=== PATIENT | female | born 1985 | race Caucasian/White ===

== ENCOUNTER 2017-06-04 10:59 | Emergency (ER) | payer OTHER, SELFPAY ==
[2017-06-04 12:43] VITALS: BP 136/74; PULSE 89; RESP 20; TEMP 37.2; O2SAT 96; BMI 35.6
[2017-06-04 12:59] LABS: UTC Influenza A Antigen Negative (Negative); UTC Influenza B Antigen Negative (Negative)
--- NOTE | 2017-06-04 13:24 | HMH.EDUTC ---
[facility] [place] Disposition Clinical Impression: Viral illness Disposition: Home, Self-Care Condition on Discharge: Good Instructions: DI for Viral Syndrome Additional Instructions: * No sign of bacterial infection. Likely viral. Virus can take 7-14 days to run their course * Monitor Temp. Tylenol every 4 hours as needed no more then 5 times a day or 4000mg in 24 hours and/or ibuprofen every 6 hours as needed no more then 3200mg in 24 hours (as long as your primary care doctor has told you that it is ok to take both) for fever/aches/pain. ER if fever no less than 101 despite tylenol and ibuprofen * Encourage fluids, water, gatorade, powerade, pedialyte if infant/toddler/child * warm salt water gargles * warm fluids * sore throat lozenges * sleep elevated * humidifier/vaporizer Referrals: Mayra Palma [Primary Care Provider] - (IMMEDIATELY for new or worsening symptoms OR no noticeable improvement over the next 48-72 hours. FU in 48 hours for strep culture results. 911 for difficulty breathing or swallowing.) Time of Disposition: 13:55 Medical Decision Making Vital Signs: 06/04/17 12:43 Temperature 98.9 F Temperature Source Temporal Artery Scan Pulse Rate [Right Brachial] 89 Respiratory Rate 20 Blood Pressure [Right Arm] 136/74 Blood Pressure Mean [Right Arm] 94 Blood Pressure Source [Right Arm] Automatic Cuff Blood Pressure Position [Right Arm] Sitting 02 Sat by Pulse Oximetry 96 Oxygen Delivery Method Room Air - Lab Data Lab results reviewed: Yes: I reviewed the patient's lab results. Lab Results 06/04/17 12:58: Influenza Type A Ag Negative, Influenza Type B Ag Negative - [place] Inquiry Pt receiving controlled substance: No [facility] [place] HPI - General Stated complaint: congestion Time Seen by Provider: 06/04/17 13:25 Mode of Arrival: Family Vehicle Source of Information: Patient Limitations: No Limitations Description of Symptoms (Recalled from Triage Doc. by RN): FLU LIKE SYMTOMS. HEENT Symptoms (Recalled from RN notes): Yes (FLU LIKE SYMPTOMS) Resp Symptoms (Recalled from RN notes): Yes (FLU LIKE SYMPTOMS) Skin Symptoms (Recalled from RN notes): No MS Symptoms (Recalled from RN notes): No Functional Status (Recalled from RN notes): NA - History of Present Illness Provider Complaint: c/o bodyaches. Started day before yesterday. Spouse recently had strep. Pt does have sore throat but worried she has the flu, not strep. No cough. Nyquil and ibuprofen has helped. Hasn't taken anything today but reports bodyaches are miserable. - Related Data Home Medications Medication Instructions Recorded Confirmed Omeprazole [Omeprazole 20mg 20 mg PO DAILY 06/04/17 06/04/17 Capsule] Venlafaxine HCl [Venlafaxine HCl 150 mg PO DAILY 06/04/17 06/04/17 ER] Allergies Allergy/AdvReac Type Severity Reaction Status Date / Time No Known Allergies Allergy Verified 06/04/17 11:39 - Worker's Comp Is this a Worker's Comp case?: No Is this an [place] Worker's Comp?: No Is this a [place] Worker's Comp?: No [place] History I have reviewed the patient's past medical history: Yes Medical History: Denies:: Diabetes Mellitus Type 2, Hypertension Laterality Cases: Bilateral: Tonsillectomy Other Surgeries: Yes: , Other (anna, hysterectomy) - *Social History Smoking Status: Never smoker Alcohol Intake: never - Psychiatric History Expresses thoughts of harming self/others: None Suicide Plan Description: No Plan ROS Obtained: Yes Systems reviewed as appropriate & no additional complaints - Constitutional Constitutional: Reports as per HPI, Reports body ache, Reports chills, Reports fatigue, Reports fever(s) (101), Reports poor appetite - Eyes Eyes: Denies eye discharge, Denies eye pain - ENT Ears, Nose, Mouth, and Throat: Denies difficulty swallowing, Reports otalgia, Reports nasal congestion, Denies nasal discharge, Reports pain with swallowing, Reports sore throat, Denies throat swelling
--- NOTE | 2017-06-04 13:29 | ED_ITS ---
[facility] [place] Clinical Impression: Viral illness Disposition: Home, Self-Care Condition on Discharge: Good Instructions: DI for Viral Syndrome Additional Instructions: * No sign of bacterial infection. Likely viral. Virus can take 7-14 days to run their course * Monitor Temp. Tylenol every 4 hours as needed no more then 5 times a day or 4000mg in 24 hours and/or ibuprofen every 6 hours as needed no more then 3200mg in 24 hours (as long as your primary care doctor has told you that it is ok to take both) for fever/aches/pain. ER if fever no less than 101 despite tylenol and ibuprofen * Encourage fluids, water, gatorade, powerade, pedialyte if infant/toddler/ child * warm salt water gargles * warm fluids * sore throat lozenges * sleep elevated * humidifier/vaporizer Referrals: Mayra Palma [Primary Care Provider] - (IMMEDIATELY for new or worsening symptoms OR no noticeable improvement over the next 48-72 hours. FU in 48 hours for strep culture results. 911 for difficulty breathing or swallowing.) Time of Disposition: 13:55 Medical Decision Making Vital Signs: 06/04/17 12:43 Temperature 98.9 F Temperature Source Temporal Artery Scan Pulse Rate [Right Brachial] 89 Respiratory Rate 20 Blood Pressure [Right Arm] 136/74 Blood Pressure Mean [Right Arm] 94 Blood Pressure Source [Right Arm] Automatic Cuff Blood Pressure Position [Right Arm] Sitting 02 Sat by Pulse Oximetry 96 Oxygen Delivery Method Room Air - Lab Data Lab results reviewed: Yes: I reviewed the patient's lab results. Lab Results 06/04/17 12:58: Influenza Type A Ag Negative, Influenza Type B Ag Negative - [place] Inquiry Pt receiving controlled substance: No [facility] [place] - General Stated complaint: congestion Time Seen by Provider: 06/04/17 13:25 Mode of Arrival: Family Vehicle Source of Information: Patient Limitations: No Limitations Description of Symptoms (Recalled from Triage Doc. by RN): FLU LIKE SYMTOMS. HEENT Symptoms (Recalled from RN notes): Yes (FLU LIKE SYMPTOMS) Resp Symptoms (Recalled from RN notes): Yes (FLU LIKE SYMPTOMS) Skin Symptoms (Recalled from RN notes): No MS Symptoms (Recalled from RN notes): No Functional Status (Recalled from RN notes): NA - History of Present Illness Provider Complaint: c/o bodyaches. Started day before yesterday. Spouse recently had strep. Pt does have sore throat but worried she has the flu, not strep. No cough. Nyquil and ibuprofen has helped. Hasn't taken anything today but reports bodyaches are miserable. - Related Data Home Medications Medication Instructions Recorded Confirmed Omeprazole [Omeprazole 20mg 20 mg PO DAILY 06/04/17 06/04/17 Capsule] Venlafaxine HCl [Venlafaxine HCl 150 mg PO DAILY 06/04/17 06/04/17 ER] Allergies Allergy/AdvReac Type Severity Reaction Status Date / Time No Known Allergies Allergy Verified 06/04/17 11:39 - Worker's Comp Is this a Worker's Comp case?: No Is this an H Worker's Comp?: No Is this a [place] Worker's Comp?: No [facility] History I have reviewed the patient's past medical history: Yes Medical History: Denies:: Diabetes Mellitus Type 2, Hypertension Laterality Cases: Bilateral: Tonsillectomy Other Surgeries: Yes: , Other (anna, hysterectomy) - *Social History Smoking Status: Never smoker Alcohol Intake:
[2017-06-05 14:31] LABS: UTC Strep Screen (Rapid) Negative (Negative)
== END 2017-06-04 14:07 | disposition home or self-care (01) ==
PROVIDERS: Emergency Provider Nurse Practitioner Family; Family Provider Family Medicine; PCP Family Medicine
DX: B34.9 Viral infection, unspecified (principal); Z79.899 Other long term (current) drug therapy
CPT/HCPCS: 87804; 87880; 99201

== ENCOUNTER → 2017-07-28 13:18 | Outpatient (CLI) | payer OTHER, SELFPAY ==
[2017-07-28 13:20] LABS: Adenovirus F 40/41, stool Not Detected (NotDetected); Astrovirus Not Detected (NotDetected); Campylobacter Not Detected (NotDetected); Clostridium Difficile A/B, PCR Not Detected (NotDetected); Cryptosporidium Not Detected (NotDetected); Cyclospora Cayetanesis Not Detected (NotDetected); Entamoeba histolytica Not Detected (NotDetected); Enteroaggregative E coli Not Detected (NotDetected); Enteropathogenic E coli Not Detected (NotDetected); Enterotoxigenic E coli Not Detected (NotDetected); Giardia lamblia Not Detected (NotDetected); Norovirus Not Detected (NotDetected); Plesimonas Shigalloides, PCR Not Detected (NotDetected); Rotavirus A Not Detected (NotDetected); Salmonella, PCR Not Detected (NotDetected); Sapovirus Not Detected (NotDetected); Shiga-like toxin E coli Not Detected (NotDetected); Shigella Enterovasive E coli Not Detected (NotDetected); Vibrio Cholerae Not Detected (NotDetected); Vibrio, PCR Not Detected (NotDetected); Yersinia Entercolitica, PCR Not Detected (NotDetected)
[2017-07-28 14:01] LABS: Alanine Aminotransferase 26 U/L (12-78); Albumin Level 3.9 gm/dL (3.4-5.0); Albumin/Globulin Ratio 1.1 (1.1-1.8); Alkaline Phosphatase 55 U/L (46-116); Anion Gap 13.2 mEq/L (5-15); Aspartate Amino Transferase 15 U/L (15-37); Bilirubin,Total 0.6 mg/dL (0.2-1.0); Blood Urea Nitrogen 7 mg/dL (7-18); Calcium 8.8 mg/dL (8.5-10.1); Carbon Dioxide 26 mmol/L (21.0-32.0); Chloride 105 mmol/L (98-107); Chol/HDL Ratio 3.2 (1-3.5); Cholesterol 187 mg/dL (140-200); Creatinine,Serum 0.63 mg/dL (0.55-1.02); Estimated Glomerular Filt Rate 109 ml/min (>60); GFR (African American) 132 ML/MIN (>60); Globulin 3.6 gm/dl (1.3-3.2); Glucose 84 mg/dL (74-106); HDL Cholesterol 59 mg/dL (29-89); LDL Cholesterol 106 mg/dL (0-130); Potassium 4.2 mmoL/L (3.5-5.1); Sodium 140 mmol/L (136-145); Thyroid Stimulating Hormone 2.27 uIU/ml (0.358-3.740); Total Protein,Serum 7.5 gm/dL (6.4-8.2); Triglycerides 108 mg/dL (30-200); VLDL Cholesterol 22 mg/dL (0-40)
[2017-07-28 14:11] LABS: Basophils % 0.1 % (0.1-2.0); Eosinophils % 0.1 % (0.1-12.0); Hematocrit 40.1 % (37.0-47.0); Hemoglobin 13.4 g/dL (12.2-16.2); Lymphocytes # 2.1 K/mm3 (0.7-4.5); Lymphocytes % 31.9 K/mm3 (10-50); Mean Corpuscular HGB Conc 33.3 g/dL (31.8-35.4); Mean Corpuscular Hemoglobin 30.2 pg (27.0-31.2); Mean Corpuscular Volume 90.8 fl (81-99); Mean Platelet Volume 7.5 fl (7.4-10.4); Monocytes # 0.3 K/mm3 (0.1-1.0); Monocytes % 4.7 % (1.7-9.3); Neutrophils # 4.2 K/mm3 (1.8-7.8); Neutrophils % 63.2 % (37.0-80.0); Platelet Count 289 K/mm3 (142-424); Red Blood Count 4.42 M/mm3 (4.20-5.40); Red Cell Distribution Width 13.1 % (11.5-17.5); White Blood Count 6.7 K/mm3 (4.8-10.8)
[2017-07-30 09:29] LABS: Vitamin D 25 Hydroxy 22.2 ng/mL (30.0-100.0)
[2017-07-30 21:49] LABS: H. pylori Breath Test Negative (Negative)
== END ==
PROVIDERS: Visit Provider Physician Assistant
DX: K52.9 Noninfective gastroenteritis and colitis, unspecified (principal); R19.4 Change in bowel habit; R10.9 Unspecified abdominal pain
CPT/HCPCS: 74021; 80053; 80061; 82652; 83013; 84436; 84443; 85025; 87507

== ENCOUNTER 2017-08-05 18:57 | Emergency (ER) | payer OTHER, SELFPAY ==
[2017-08-05 19:16] VITALS: BP 129/72; PULSE 79; RESP 20; TEMP 36.9; O2SAT 99; BMI 38.4
--- NOTE | 2017-08-05 19:45 | XR_ITS ---
XR nasal bones min 3V CLINICAL INDICATION: Posttraumatic pain and swelling of the nasal bone ITS.REASON: Injury ORDERING PHYSICIAN: Jacquelyn Norton PATIENT AGE: 32 years COMPARISON: None FINDINGS: No fracture or dislocation. No sinus air-fluid level. IMPRESSION: Nasal bones
--- NOTE | 2017-08-05 19:59 | HMH.EDUTC ---
[facility] [place] Clinical Impression: Nose injury Qualifiers: Encounter type: initial encounter Qualified Code(s): S09.92XA - Unspecified injury of nose, initial encounter Disposition: Home, Self-Care Condition on Discharge: Good Instructions: Contusion, DI for Contusion Additional Instructions: Ice 20 minutes every two hours will help with swelling and pain Follow up with family doctor if pain and swelling persists Return if needed Over the counter Motrin or Tylenol as needed for pain Follow up with family doctor 24-48 hours or straight to ER if any lifethreatening symptoms Referrals: Haylee Curiel PA [Primary Care Provider] - Time of Disposition: 20:35 Medical Decision Making - Medical Records Medical records reviewed: Yes: I reviewed the patient's medical records. - Tejas Inquiry Pt receiving controlled substance: No [place] was queried for this patient: No Vital Signs: 08/05/17 19:16 08/05/17 20:23 Temperature 98.4 F 98.4 F Temperature Source Temporal Artery Scan Pulse Rate 79 Pulse Rate [Right] 79 Respiratory Rate 20 20 Blood Pressure 129/72 Blood Pressure [Right Arm] 129/72 Blood Pressure Mean [Right Arm] 91 Blood Pressure Source [Right Arm] Automatic Cuff Blood Pressure Position [Right Arm] Sitting 02 Sat by Pulse Oximetry 99 Oxygen Delivery Method Room Air Orders (Tests/Meds): ORDERS Category Date Time Status Nasal bones XR minimum 3 views [XR nasal bones min 3V] Exams 08/05/17 19:45 Taken Stat - Radiology Data #1 Image(s): Other (nasal bone) Image Reviewed: Yes I reviewed the patient's radiology image w/the ED provider Preliminary Findings: No Fracture Seen [facility] [place]PI - General Stated complaint: AO [id number] injured nose Time Seen by Provider: 08/05/17 19:40 Mode of Arrival: Ambulatory Source of Information: Patient Limitations: No Limitations Description of Symptoms (Recalled from Triage Doc. by RN): INJURY TO NOSE HEENT Symptoms (Recalled from RN notes): No Resp Symptoms (Recalled from RN notes): No Skin Symptoms (Recalled from RN notes): No MS Symptoms (Recalled from RN notes): Yes Functional Status (Recalled from RN notes): N - History of Present Illness Provider Complaint: Patient state that she was at home when her large dog (great Eddie) turned his head and accidently hit her in the nose States that she immediately began to have watery eyes and her nose began to throb in pain State that ever since it has been swollen and tender so she came in to get checked - Related Data Home Medications Medication Instructions Recorded Confirmed Venlafaxine HCl [Venlafaxine HCl 150 mg PO DAILY 06/04/17 06/04/17 ER] ranitidine 150 mg tablet 150 mg PO QHS 07/28/17 Previous Rx's Medication Instructions Recorded cholecalciferol (vitamin D3) 1,000 1,000 unit PO ONCE 90 Days #90 cap 07/30/17 unit capsule ergocalciferol (vitamin D2) 50,000 50,000 unit PO QWEEK 90 Days #14 07/30/17 unit capsule cap Allergies Allergy/AdvReac Type Severity Reaction Status Date / Time No Known Allergies Allergy Verified 07/28/17 10:30 - Worker's Comp Is this a Worker's Comp case?: No [facility] History I have reviewed the patient's past medical history: Yes Medical History: Reports:: Depression, Gastroesophageal Reflux Disease(GERD) Laterality Cases: Bilateral: Tonsillectomy Other Surgeries: Yes: , Hysterectomy-Partial Amputation: No Fractures: No Comment: Gallbladder - Social History Smoking Status: Never smoker Alcohol Intake: never Substance Use Type: denies use - Psychiatric History Expresses thoughts of harming self/others: None Suicide Plan Description: No Plan Pschychiatric History:: Reports:: Depression Family Hx:: Coronary Artery Disease, Diabetes ROS Obtained: Yes All systems reviewed & no additional complaints - ENT Ears, Nose, Mouth, and Throat: Reports nose pain, Reports other (injury to nose ) Physical Exam
--- NOTE | 2017-08-05 20:02 | ED_ITS ---
[facility] [place] Clinical Impression: Nose injury Qualifiers: Encounter type: initial encounter Qualified Code(s): S09.92XA - Unspecified injury of nose, initial encounter Disposition: Home, Self-Care Condition on Discharge: Good Instructions: Contusion, DI for Contusion Additional Instructions: Ice 20 minutes every two hours will help with swelling and pain Follow up with family doctor if pain and swelling persists Return if needed Over the counter Motrin or Tylenol as needed for pain Follow up with family doctor 24-48 hours or straight to ER if any lifethreatening symptoms Referrals: Haylee Curiel PA [Primary Care Provider] - Time of Disposition: 20:35 Medical Decision Making - Medical Records Medical records reviewed: Yes: I reviewed the patient's medical records. - Tejas Inquiry Pt receiving controlled substance: No [place] was queried for this patient: No Vital Signs: 08/05/17 19:16 08/05/17 20:23 Temperature 98.4 F 98.4 F Temperature Source Temporal Artery Scan Pulse Rate 79 Pulse Rate [Right] 79 Respiratory Rate 20 20 Blood Pressure 129/72 Blood Pressure [Right Arm] 129/72 Blood Pressure Mean [Right Arm] 91 Blood Pressure Source [Right Arm] Automatic Cuff Blood Pressure Position [Right Arm] Sitting 02 Sat by Pulse Oximetry 99 Oxygen Delivery Method Room Air Orders (Tests/Meds): ORDERS Category Date Time Status Nasal bones XR minimum 3 views [XR nasal bones min 3V] Exams 08/05/17 19:45 Taken Stat - Radiology Data #1 Image(s): Other (nasal bone) Image Reviewed: Yes I reviewed the patient's radiology image w/the ED provider Preliminary Findings: No Fracture Seen [facility] [place] - General Stated complaint: AO [id number] injured nose Time Seen by Provider: 08/05/17 19:40 Mode of Arrival: Ambulatory Source of Information: Patient Limitations: No Limitations Description of Symptoms (Recalled from Triage Doc. by RN): INJURY TO NOSE HEENT Symptoms (Recalled from RN notes): No Resp Symptoms (Recalled from RN notes): No Skin Symptoms (Recalled from RN notes): No MS Symptoms (Recalled from RN notes): Yes Functional Status (Recalled from RN notes): N - History of Present Illness Provider Complaint: Patient state that she was at home when her large dog ( great Eddie) turned his head and accidently hit her in the nose States that she immediately began to have watery eyes and her nose began to throb in pain State that ever since it has been swollen and tender so she came in to get checked - Related Data Home Medications Medication Instructions Recorded Confirmed Venlafaxine HCl [Venlafaxine HCl 150 mg PO DAILY 06/04/17 06/04/17 ER] ranitidine 150 mg tablet 150 mg PO QHS 07/28/17 Previous Rx's Medication Instructions Recorded cholecalciferol (vitamin D3) 1,000 1,000 unit PO ONCE 90 Days #90 cap 07/30/17 unit capsule ergocalciferol (vitamin D2) 50,000 50,000 unit PO QWEEK 90 Days #14 07/30/17 unit capsule cap Allergies Allergy/AdvReac Type Severity Reaction Status Date / Time No Known Allergies Allergy Verified 07/28/17 10:30 - Worker's Comp Is this a Worker's Comp case?: No [facility] History I have reviewed the patient's past medical history: Yes Me
[2017-08-05 20:23] VITALS: BP 129/72; PULSE 79; RESP 20; TEMP 36.9
== END 2017-08-05 20:38 | disposition home or self-care (01) ==
PROVIDERS: Emergency Provider Nurse Practitioner; Family Provider Family Medicine; PCP Physician Assistant
DX: S09.92XA Unspecified injury of nose, initial encounter (principal); K21.9 Gastro-esophageal reflux disease without esophagitis; F32.9 Major depressive disorder, single episode, unspecified; W54.1XXA Struck by dog, initial encounter; Y92.019 Unspecified place in single-family (private) house as the place of occurrence of the external cause
CPT/HCPCS: 70160; 99201

== ENCOUNTER → 2017-08-20 08:47 | Outpatient (CLI) | payer OTHER, SELFPAY ==
--- NOTE | 2017-08-20 08:49 | FL_ITS ---
FL upper GI small bowel HISTORY: ITS.REASON: Abdominal pain,nausea ORDERING PHYSICIAN: Memo Cameron MD PATIENT AGE: 32 years COMPARISON: FINDINGS: The esophagus, stomach, and duodenum have an unremarkable appearance. There is no evidence of hiatal hernia. No ulcer or mass evident. No mucosal abnormalities apparent. There is normal peristalsis. The duodenal C-loop is nondisplaced. The small bowel has an unremarkable appearance. No obstruction, mass, or mucosal abnormalities are evident. The terminal ileum has an unremarkable appearance. The appendix didn't fill FLUOROSCOPY TIME : Fluoroscopy time. IMPRESSION: Negative upper GI with small bowel follow-through
== END ==
PROVIDERS: Family Provider Family Medicine; PCP Physician Assistant; Visit Provider Surgery
DX: R10.30 Lower abdominal pain, unspecified (principal); K52.9 Noninfective gastroenteritis and colitis, unspecified; R11.0 Nausea
CPT/HCPCS: 74245

== ENCOUNTER → 2017-09-02 08:38 | Outpatient (CLI) | payer OTHER, SELFPAY ==
--- NOTE | 2017-09-02 08:40 | CT_ITS ---
CT abdomen pelvis w con CLINICAL INDICATION: ITS.REASON: lower abdominal pain,nausea ORDERING PHYSICIAN: Memo Cameron MD PATIENT AGE: 32 years COMPARISON: 03/24/2017 TECHNIQUE: Axial images obtained with sagittal and coronal reformats. All CT scans at the facility use one or more dose reduction, viz: automated exposure control; ma/kV adjustment per patient size (including targeted exams where dose is matched to indication; i.e. head); or iterative reconstruction technique. PROCEDURE: Oral Contrast: 75 mL's of Isovue-370 IV Contrast: Redicat. FINDINGS: Lung bases are clear. No focal liver lesion. There has been a prior cholecystectomy. There is borderline splenomegaly at 13 cm. The pancreas, adrenal glands, and kidneys have an unremarkable appearance. Small nodes are present in the periaortic region Unremarkable appendix. No evidence of diverticulitis, intestinal obstruction, or free air. There is been prior hysterectomy. There is a 2.5 cm cyst involving the right ovary. There is minimal amount of fluid in the cul-de-sac. There is mild diastases of the anterior abdominal wall centrally at the level the umbilicus similar to the previous exam with a tiny umbilical hernia containing fat. No acute bony anomalies. IMPRESSION: 1. 2.5 cm right ovarian cyst with minimal amount of fluid in the cul-de-sac. 2. Borderline splenomegaly. 3. Other nonacute findings as described above.
== END ==
PROVIDERS: Family Provider Family Medicine; PCP Physician Assistant; Visit Provider Surgery
DX: R11.0 Nausea (principal); K52.9 Noninfective gastroenteritis and colitis, unspecified; R10.30 Lower abdominal pain, unspecified
CPT/HCPCS: 74177; Q9967

== ENCOUNTER → 2019-05-20 13:55 | Outpatient (CLI) | payer MEDICAID, SELFPAY ==
--- NOTE | 2019-05-20 14:01 | XR_ITS ---
PROCEDURE: XR KNEE RT 4V CLINICAL INDICATION: Right knee pain Right knee pain COMPARISON: [id number] KNEE-3 VIEWS-RT from 01/25/2017 FINDINGS: No fracture or dislocation. No lytic or blastic change. There is normal mineralization. The joint spaces are well-preserved. No significant degenerative/arthritic changes. No erosive changes evident. Other findings:None. IMPRESSION: No acute findings. Dictated by: Nic Newberry MD 05/20/2019 14:35 Electronically signed by Nic Newberry MD in [place] 05/20/2019 14:35
--- NOTE | 2019-05-20 14:01 | XR_ITS ---
PROCEDURE: XR ELBOW LT MIN 3V CLINICAL INDICATION: Left elbow pain [facility] 10[facility] FINDINGS: No fracture or dislocation. No lytic or blastic change. There is normal mineralization. The joint spaces are well-preserved. No significant degenerative/arthritic changes. No erosive changes evident. Other findings:No displaced fat pad IMPRESSION: Negative left elbow Dictated by: Nic Newberry MD 05/20/2019 14:39 Electronically signed by Nic Newberry MD in [place] 05/20/2019 14:39
== END ==
PROVIDERS: PCP Physician Assistant; Referring Provider Orthopaedic Surgery; Visit Provider Physician Assistant
DX: M25.522 Pain in left elbow (principal); M25.561 Pain in right knee
CPT/HCPCS: 73080; 73564

== ENCOUNTER 2019-05-27 13:49 | Outpatient (RCR) | payer MEDICAID, SELFPAY ==
--- NOTE | 2019-05-27 14:35 | HMH.PTOPEV ---
PT Outpatient Evaluation Rehab PT Outpatient Evaluation Start: 05/27/19 14:15 Freq: Status: Active Protocol: Document 05/27/19 14:15 SELAM (Rec: 05/27/19 14:35 SELAM [id number]) Electronically Signed By Nathaniel Velazquez, PT 05/27/19 14:15 Outpatient Therapy Subjective History Subjective History Pt reports h/o chronic R knee pain since 1999, however, reports exacerbation over the last ~12 months. Pt reports mostly anterio-lateral R knee pain in origin, and intermittent 'popping, clicking, and some buckling'. Pt reports recent Xrays of R knee have revealed 'issues behind the right knee cap'. Chief Complaint Pain,Stiff,Clicks,Catches/ Locks,Gives out/Unstable, Weakness Symptom Type Ache,Sharp,Dull Symptoms Relieved By Rest/Positioning,Heat,Ice Symptoms Aggravated By Standing,Physical Activity, Walking Prior Functional Limitations Housework,Standing,Walking, Stairs Current Functional Limitations Housework,Standing,Squatting, Walking,Stairs Symptom Description Constant but Variable Level of pain today (0-10) 4 Pain scale - at its best (0-10) 3 Pain scale - at its worst (0-10) 6 Hip/Knee Eval Gait Observation General Gait Pattern Observation Antalgic Gait Assistive Device Assistive Devices None / NA Palpation Tenderness right Knee Palpation Finding Tenderness Knee Palpation Overall Comment 3/4-lateral plica MMT Hip Flexion Strength Grade 4- Good- Hip Abduction Strength Grade 4- Good- Hip Adduction Strength Grade 4- Good- Hip Extension Strength Grade 4- Good- Hip External Rotation Strength Grade 4 Good Hip Internal Rotation Strength Grade 4- Good- Knee Extension Strength Grade 5 Normal Knee Flexion Strength Grade 5 Normal ROM Knee Flexion Active Range of Motion ( 2-0-135 degrees) Effusion joint effusion knee exam standard right Mid - Patellar Circumerential Measure ( 43 cm) Special Tests Patella Apprehension Test Negative Right Patellar Grind Test Negative Right Patellar Compression Test Negative Right Outpatient Therapy Assessment Impairments Problems/Impairmments Palpation Tenderness,Impaired Range of Motion,Impaired Strength,Impaired Gait Pattern
== END 2019-05-27 13:55 | disposition home or self-care (01) ==
LOC: PT 13:49
PROVIDERS: PCP Physician Assistant; Visit Provider Orthopaedic Surgery
DX: M22.41 Chondromalacia patellae, right knee (principal)
CPT/HCPCS: 97163

== ENCOUNTER 2019-12-15 22:52 | Emergency (ER) | payer MEDICAID, SELFPAY ==
[2019-12-15 22:54] VITALS: BMI 34.7
[2019-12-15 22:56] VITALS: BP 124/68; PULSE 67; RESP 16; TEMP 36.9; O2SAT 99
--- NOTE | 2019-12-15 23:11 | XR_ITS ---
PROCEDURE: XR KNEE RT 3V CLINICAL INDICATION: fell from ladder Pain following injury COMPARISON: CR KNEE3R KNEE-3 VIEWS-RT from 01/25/2017 CR XR KNEE RT 4V from 05/20/2019 FINDINGS: No fracture or dislocation. No lytic or blastic change. There is normal mineralization. The joint spaces are well-preserved. No significant degenerative/arthritic changes. No erosive changes evident. Other findings:None. IMPRESSION: No acute findings. Dictated b Nic Newberry MD 12/16/2019 05:46 Nic Newberry MD in [place] 12/16/2019 05:46
--- NOTE | 2019-12-15 23:11 | XR_ITS ---
PROCEDURE: XR ANKLE RT MIN 3V CLINICAL INDICATION: fell from ladder Pain COMPARISON: No exams were available for comparison FINDINGS: No fracture or dislocation. No lytic or blastic change. There is normal mineralization. The joint spaces are well-preserved. No significant degenerative/arthritic changes. No erosive changes evident. Other findings:None. IMPRESSION: No acute findings. Dictated b Nic Newberry MD 12/16/2019 05:45 Nic Newberry MD in [place] 12/16/2019 05:45
--- NOTE | 2019-12-15 23:11 | XR_ITS ---
PROCEDURE: XR FOOT RT MIN 3V CLINICAL INDICATION: fell from ladder Pain COMPARISON: No exams were available for comparison FINDINGS: No fracture or dislocation. No lytic or blastic change. There is normal mineralization. The joint spaces are well-preserved. No significant degenerative/arthritic changes. No erosive changes evident. Other findings:None. IMPRESSION: No acute findings. Dictated b Nic Newberry MD 12/16/2019 05:44 Nic Newberry MD in [place] 12/16/2019 05:44
--- NOTE | 2019-12-15 23:11 | XR_ITS ---
PROCEDURE: XR TIBIA FIBULA RT 2V CLINICAL INDICATION: fell from ladder Pain following injury COMPARISON: CR XR FOOT RT MIN 3V from 12/15/2019 FINDINGS: No fracture or dislocation. No lytic or blastic change. There is normal mineralization. The joint spaces are well-preserved. No significant degenerative/arthritic changes. No erosive changes evident. Other findings:None. IMPRESSION: No acute findings. Dictated b Nic Newberry MD 12/16/2019 05:46 Nic Newberry MD in [place] 12/16/2019 05:46
--- NOTE | 2019-12-15 23:32 | XR_ITS ---
PROCEDURE: XR PELVIS 1-2V CLINICAL INDICATION: fell from ladder Blunt trauma with injury and pain, contusion/abrasion or hematoma following injury COMPARISON: No exams were available for comparison TECHNIQUE: XR Pelvis AP View FINDINGS: No fracture or dislocation is evident. No significant degenerative change. No lytic or blastic change. IMPRESSION: No acute findings. Dictated b Nic Newberry MD 12/16/2019 05:44 Nic Newberry MD in [place] 12/16/2019 05:44
--- NOTE | 2019-12-15 23:32 | XR_ITS ---
PROCEDURE: XR CHEST AP CLINICAL HISTORY: fell from ladder Posttraumatic pain, Blunt trauma with injury and pain, contusion/abrasion or hematoma following injury COMPARISON: CR CXR CHEST(2 VIEWS-NOT PORTABLE) from 09/18/2014 FINDINGS: The cardiomediastinal silhouette and pulmonary vascularity are within normal limits. The lungs are clear without infiltrates, suspicious nodules, or pleural effusions. No acute bony abnormalities. IMPRESSION: No acute findings. Dictated b Nic Newberry MD 12/16/2019 05:43 Nic Newberry MD in [place] 12/16/2019 05:43
[2019-12-15 23:45] VITALS: BP 110/58; PULSE 61; RESP 18; O2SAT 99
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
[2019-12-16 00:26] VITALS: BP 115/62; PULSE 68; RESP 16; TEMP 37; O2SAT 97
== END 2019-12-16 00:28 | disposition home or self-care (01) ==
PROVIDERS: Emergency Provider Family Medicine; PCP Physician Assistant
DX: S93.401A Sprain of unspecified ligament of right ankle, initial encounter (principal); W11.XXXA Fall on and from ladder, initial encounter; Y92.019 Unspecified place in single-family (private) house as the place of occurrence of the external cause; F41.8 Other specified anxiety disorders; K21.9 Gastro-esophageal reflux disease without esophagitis; Z90.49 Acquired absence of other specified parts of digestive tract; Z90.79 Acquired absence of other genital organ(s)
CPT/HCPCS: 71045; 72170; 73562; 73590; 73610; 73630; 99281

== ENCOUNTER 2020-02-04 13:21 | Emergency (ER) | payer MEDICAID, SELFPAY ==
[2020-02-04 13:51] VITALS: BP 126/87; PULSE 72; RESP 14; TEMP 37.1; O2SAT 100; BMI 35.6
--- NOTE | 2020-02-04 13:51 | HMH.EDUTC ---
[facility] Disposition Clinical Impression: Viral syndrome, Bronchitis Disposition: Home, Self-Care Condition on Discharge: Good Instructions: Preventing the Spread of Coronavirus Discharge Instructions, DI for Viral Syndrome Additional Instructions: Drink plenty of fluids. Take tylenol or ibuprofen for pain or fever. Take the medications as directed. Follow up with your regular doctor. GO TO THE ER FOR ANY WORSENING SYMPTOMS FOLLOW THE DIRECTIONS ON THE COVID-19 HAND OUT THAT WE GAVE YOU REGARDING SELF-ISOLATION UNTIL YOU KNOW YOUR COVID-19 RESULTS Prescriptions: Brompheniramine/Pseudoephed/Dm [Bromfed Dm Cough Syrup] 5 ml PO Q6HP PRN #240 syrup PRN Reason: Cough Transmission Status: Pending to [facility] # Ondansetron [Zofran 4mg ODT] 4 mg PO Q8HP PRN #20 tab.rapdis PRN Reason: Nausea Transmission Status: Pending to [facility] # Azithromycin [Z-Asaf 250mg Tab*] 250 mg PO UD DOSE PK #6 tab Transmission Status: Pending to [facility] # Referrals: Haylee Curiel PA [Primary Care Provider] - Forms: Work/School Release Time of Disposition: 13:55 Medical Decision Making - Medical Records Medical records reviewed: No: I reviewed the patient's medical records. - [place] Inquiry Pt receiving controlled substance: No - Lab Data Lab results reviewed: Yes: I reviewed the patient's lab results. Orders (Tests/Meds): ORDERS Category Date Time Status Covid-19 Nasal PCR Sendout [facility] Stat Lab 02/04/20 13:24 Ordered [facility] HPI - General Stated complaint: oumou alexanders Time Seen by Provider: 02/04/20 13:51 - History of Present Illness Provider Complaint: She c/o 3 days of chilling, body aches, dry cough and mild shortness of breath at times. She has also been running a fever but she has not checked it with a thermometer. - Related Data Previous Rx's Medication Instructions Recorded Azithromycin [Z-Asaf 250mg Tab*] 250 mg PO UD DOSE PK #6 tab 02/04/20 Brompheniramine/Pseudoephed/Dm 5 ml PO Q6HP PRN #240 syrup 02/04/20 [Bromfed Dm Cough Syrup] Ondansetron [Zofran 4mg ODT] 4 mg PO Q8HP PRN #20 tab.germandis 02/04/20 Allergies Allergy/AdvReac Type Severity Reaction Status Date / Time No Known Allergies Allergy Verified 11/10/19 10:13 [facility] History - Hepatitis A Screen Attestation statement:: This patient has been screened for Hepatitis A risk factors. I have reviewed the patient's past medical history: Yes Medical History: Reports:: Anxiety, Depression, Gastroesophageal Reflux Disease(GERD) Denies:: Cancer, Diabetes Mellitus Type 1, Diabetes Mellitus Type 2, Hypertension, MRSA Laterality Cases: Bilateral: Tonsillectomy Other Surgeries: Yes: Cholecystectomy, , Hysterectomy-Total, Hysterectomy-Partial, Other Amputation: No Fractures: No Comment: GALLBLADDER REMOVAL - Social History Smoking Status: Never smoker Alcohol Intake: never Alcohol Intake Frequency:: holidays/special occasions only Substance Use Type: denies use Occupational Status: unemployed Housing: house Household Members: children - Psychiatric History Pschychiatric History:: Reports:: Anxiety, Depression Family Hx:: Coronary Artery Disease, Diabetes ROS Obtained: Yes All systems reviewed & no additional complaints - Constitutional Constitutional: Reports chills, Reports fever(s), Reports poor appetite, Reports malaise - Eyes Eyes: Denies eye discharge - ENT Ears, Nose, Mouth, and Throat: Reports as per HPI - Cardiovascular Cardiovascular: Denies chest pain - Respiratory Respiratory: Yes chest congestion, Yes cough, Yes dyspnea, No stridor, No wheezing Physical Exam - General General appearance: alert, in no apparent distress - Head Head exam: atraumatic, normocephalic, normal inspection - Eye Eye exam: Present: normal appearance, PERRL, EOMI - ENT ENT exam: Present: normal exam, normal oropharynx, mucous membran
[2020-02-04 14:02] VITALS: BP 126/87; PULSE 72; RESP 14; TEMP 37.1; O2SAT 100
[2020-02-04 20:56] LABS: UTC Strep Screen (Rapid) Negative (Negative)
[2020-02-05 17:16] LABS: Covid-19 Nasal PCR Sendout UK NOT DETECTED
== END 2020-02-04 14:09 | disposition home or self-care (01) ==
PROVIDERS: Emergency Provider Nurse Practitioner Family; PCP Physician Assistant
DX: B34.9 Viral infection, unspecified (principal); J20.9 Acute bronchitis, unspecified; Z20.828 Contact with and (suspected) exposure to other viral communicable diseases; F41.8 Other specified anxiety disorders; K21.9 Gastro-esophageal reflux disease without esophagitis; Z90.49 Acquired absence of other specified parts of digestive tract; Z90.710 Acquired absence of both cervix and uterus
CPT/HCPCS: 87880; 99202; U0003

== ENCOUNTER → 2020-12-27 10:42 | Outpatient (CLI) | payer OTHER, SELFPAY ==
[2020-12-27 13:25] LABS: Adenovirus,PCR Not Detected (NotDetected); Bordetella Pertussis Not Detected (NotDetected); Chlamydophila Pneumoniae, PCR Not Detected (NotDetected); Coronavirus 19, PCR Not Detected (NotDetected); Coronavirus NL63 Not Detected (NotDetected); Coronavirus OC43 Not Detected (NotDetected); Coronovirus HKU1,PCR Not Detected (NotDetected); Human Metapneumovirus Not Detected (NotDetected); Influenza A, PCR Not Detected (NotDetected); Influenza AH1, 2009 Not Detected (NotDetected); Influenza AH1, PCR Not Detected (NotDetected); Influenza AH3,PCR Not Detected (NotDetected); Influenza B, PCR Not Detected (NotDetected); Mycoplasma Pneumoniae, PCR Not Detected (NotDetected); Parainfluenza 1, PCR Not Detected (NotDetected); Parainfluenza 2, PCR Not Detected (NotDetected); Parainfluenza 3, PCR Not Detected (NotDetected); Parainfluenza 4, PCR Not Detected (NotDetected); Respiratory Syncytial Virus Not Detected (NotDetected); Rhinovirus/Enterovirus Not Detected (NotDetected)
[2020-12-27 21:23] LABS: Coronavirus 229E Detected (NotDetected)
== END ==
PROVIDERS: PCP Nurse Practitioner; Visit Provider Nurse Practitioner
DX: Z20.822 Contact with and (suspected) exposure to COVID-19 (principal); U07.1 COVID-19
CPT/HCPCS: 87581; 87633; 87798

== ENCOUNTER → 2021-03-11 17:08 | Outpatient (CLI) | payer OTHER, SELFPAY ==
[2021-03-11 17:14] LABS: Adenovirus F 40/41, stool Not Detected (NotDetected); Astrovirus Not Detected (NotDetected); Campylobacter Not Detected (NotDetected); Clostridium Difficile A/B, PCR Not Detected (NotDetected); Cryptosporidium Not Detected (NotDetected); Cyclospora Cayetanesis Not Detected (NotDetected); Entamoeba histolytica Not Detected (NotDetected); Enteroaggregative E coli Not Detected (NotDetected); Enterotoxigenic E coli Not Detected (NotDetected); Giardia lamblia Not Detected (NotDetected); Norovirus Not Detected (NotDetected); Plesimonas Shigalloides, PCR Not Detected (NotDetected); Rotavirus A Not Detected (NotDetected); Salmonella, PCR Not Detected (NotDetected); Sapovirus Not Detected (NotDetected); Shiga-like toxin E coli Not Detected (NotDetected); Shigella Enterovasive E coli Not Detected (NotDetected); Vibrio Cholerae Not Detected (NotDetected); Vibrio, PCR Not Detected (NotDetected); Yersinia Entercolitica, PCR Not Detected (NotDetected)
[2021-03-11 20:54] LABS: Enteropathogenic E coli Detected (NotDetected)
== END ==
PROVIDERS: Visit Provider Family Medicine
DX: R19.7 Diarrhea, unspecified (principal); A04.0 Enteropathogenic Escherichia coli infection
CPT/HCPCS: 87507

== ENCOUNTER 2021-03-12 09:07 | Emergency (ER) | payer OTHER, SELFPAY ==
[2021-03-12 09:08] VITALS: BP 112/74; PULSE 63; RESP 18; TEMP 36.9; O2SAT 98; BMI 31.1
[2021-03-12 09:13] VITALS: BP 124/53; PULSE 61; O2SAT 100
[2021-03-12 09:42] LABS: Basophils # 0.1 K/mm3 (0-0.2); Basophils % 1.1 % (0.1-2.0); Eosinophils # 0.2 K/mm3 (0.0-0.4); Eosinophils % 3.2 % (0.1-12.0); Hematocrit 40.5 % (37.0-47.0); Hemoglobin 13.9 g/dL (12.2-16.2); Lymphocytes # 2.1 K/mm3 (0.7-4.5); Lymphocytes % 32.1 % (10-50); Mean Corpuscular HGB Conc 34.2 g/dL (31.8-35.4); Mean Corpuscular Hemoglobin 30.8 pg (27.0-31.2); Mean Corpuscular Volume 90.1 fl (81-99); Mean Platelet Volume 7.8 fl (7.4-10.4); Monocytes # 0.3 K/mm3 (0.1-1.0); Neutrophils # 3.8 K/mm3 (1.8-7.8); Neutrophils % 58.5 % (37.0-80.0); Platelet Count 338 K/mm3 (142-424); Red Cell Distribution Width 13.3 % (11.5-17.5); White Blood Count 6.5 K/mm3 (4.8-10.8)
[2021-03-12 09:47] LABS: Chloride 107 mmol/L (98-107); Sodium 141 mmol/L (136-145)
[2021-03-12 09:49] LABS: Lipase 72 U/L (23-300)
[2021-03-12 09:50] LABS: Alanine Aminotransferase 14 U/L (12-78); Albumin Level 4.2 g/dl (3.5-5.0); Albumin/Globulin Ratio 1.4 (1.1-1.8); Alkaline Phosphatase 58 U/L (38-126); Aspartate Amino Transferase 23 U/L (14-36); Blood Urea Nitrogen 7 mg/dl (7-17); Calcium 9.2 mg/dl (8.4-10.2); Carbon Dioxide 26 mmol/L (22.0-30.0); Creatinine Clearance Estimated 158 mL/min (50-200); Estimated Glomerular Filt Rate 113 ml/min (>60); GFR (African American) 137 ML/MIN (>60); Globulin 3.1 g/dL (1.3-3.2); Glucose 93 mg/dl (74-100); Total Protein,Serum 7.3 g/dl (6.3-8.2)
[2021-03-12 10:30] LABS: Microscopic, Urine URINE MICROSCOPIC (MICROSCOPIC)
--- NOTE | 2021-03-12 10:30 | HMH.EDGENADL ---
ED Disposition Clinical Impression: E coli infection Diarrhea Qualifiers: Diarrhea type: unspecified type Qualified Code(s): R19.7 - Diarrhea, unspecified Disposition: Home, Self-Care Condition on Discharge: Good Instructions: DI for Acute Abdominal Pain Additional Instructions: Medications as directed, begin your antibiotic tomorrow. Follow-up PCP in 1 to 2 days. Return the emergency part for fever, nausea/vomiting. Prescriptions: levoFLOXacin [Levaquin 500mg tab] 500 mg PO DAILY #2 tab Transmission Status: Pending to [facility] Referrals: Alesia Matthews APRN [Primary Care Provider] - 3 days Time of Disposition: 10:35 - Critical Care Critical Care Time: No Attestation: On 03/12/21, the high probability of a clinically significant, sudden or life threatening deterioration of the following system(s) required my full and direct attention, intervention and personal management. The time I documented below is in addition to time spent performing reported procedures but includes the following listed in this critical care notation. Medical Decision Making - Medical Records Medical records reviewed: Yes: I reviewed the patient's medical records. - [place] Inquiry Pt receiving controlled substance: No Vital Signs: 03/12/21 09:08 03/12/21 09:13 Temperature 98.4 F Temperature Source Oral Pulse Rate 61 Pulse Rate [Radial] 63 Respiratory Rate 18 Blood Pressure 124/53 L Blood Pressure [Right Arm] 112/74 Blood Pressure Mean 82 Blood Pressure Mean [Right Arm] 86 Blood Pressure Position [Right Arm] Sitting 02 Sat by Pulse Oximetry 98 100 Oxygen Delivery Method Room Air - Lab Data Lab results reviewed: Yes: I reviewed the patient's lab results. Lab Results 03/12/21 09:20: WBC 6.5, RBC 4.50, Hgb 13.9, Hct 40.5, MCV 90.1, MCH 30.8, MCHC 34.2, RDW 13.3, Plt Count 338, MPV 7.8, Neut % (Auto) 58.5, Lymph % (Auto) 32.1, [place] % (Auto) 5.0, Eos % (Auto) 3.2, Baso % (Auto) 1.1, Neut # (Auto) 3.8, Lymph # (Auto) 2.1, [place] # (Auto) 0.3, Eos # (Auto) 0.2, Baso # (Auto) 0.1 03/12/21 09:20: Sodium 141, Potassium 4.0, Chloride 107, Carbon Dioxide 26, Anion Gap 12.0, BUN 7, Creatinine 0.60, Estimated Creat Clear 158, Estimated GFR 113, Est GFR ( Amer) 137, Glucose 93, Calcium 9.2, Total Bilirubin 1.0, AST 23, ALT 14, Alkaline Phosphatase 58, Total Protein 7.3, Albumin 4.2, Globulin 3.1, Albumin/Globulin Ratio 1.4 03/12/21 09:20: Lipase 72 Result diagrams: 03/12/21 09:20 03/12/21 09:20 Orders (Tests/Meds): ED MEDICATIONS Generic Name Dose Route Start Last Admin Trade Name Freq PRN Reason Stop Dose Admin Sodium Chloride 1,000 mls @ 999 mls/hr 03/12/21 09:30 03/12/21 09:31 Sod Chlor 0.9% 1000ml Bag IV 03/12/21 10:30 999 mls/hr .Q1H1M PAULINA Administration Discontinued Medications Generic Name Dose Route Start Last Admin Trade Name Freq PRN Reason Stop Dose Admin Ondansetron HCl 4 mg 03/12/21 09:29 03/12/21 09:31 Ondansetron 4mg/2ml Vial IV 03/12/21 09:30 4 mg ONCE ONE Administration ORDERS Category Date Time Status Urinalysis and Microscopic Stat Lab 03/12/21 10:05 Received Medical Decision Narrative: 35yo F evaluated for ongoing abdominal pain and diarrhea. Patient has stool study positive for E. coli. Physical exam is largely unremarkable. Blood work is benign. We will treat the patient with Levaquin 500 mg p.o. x3 days. First dose provided in the emergency department and prescription sent to her pharmacy for the remaining 2 doses. Counseled patient stay well-hydrated and follow with your PCP within the week. General Adult HPI - General Chief complaint: Abdominal Pain Stated complaint: e.coli since 02/08 Time Seen by Provider: 03/12/21 10:00 Mode of Arrival: Ambulatory Limitations: No Limitations Description of Symptoms (Recalled from ER Triage Doc. by RN): TO ED PER [facility] CAR PT SENT BY PCP FOR EVAL DUE TO ABD PAIN, NAUSEA, DIARRHEA X
[2021-03-12 10:35] LABS: Appearance,Urine CLEAR (Clear); Bilirubin,Urine Negative (Negative); Blood, Urine Negative (Negative); Color,Urine YELLOW (Yellow); Glucose,Urine (UA) Negative (Negative); Ketones,Urine Negative (Negative); Leukocyte Esterase,Urine Negative (Negative); Nitrate,Urine Negative (Negative); Protein,Urine TRACE (Negative); Specific Gravity, Urine >= 1.030 (1.005-1.030); Urobilinogen,Urine 0.2 EU/dl (0.2)
[2021-03-12 10:53] LABS: Bacteria,Urine Trace /lpf; WBC,Urine Occasional #/hpf (0-3)
[2021-03-12 11:06] VITALS: BP 124/53; PULSE 61; RESP 18; TEMP 36.9; O2SAT 100
== END 2021-03-12 11:08 | disposition home or self-care (01) ==
PROVIDERS: Emergency Provider Family Medicine; PCP Nurse Practitioner
DX: N30.00 Acute cystitis without hematuria (principal); B96.20 Unspecified Escherichia coli [E. coli] as the cause of diseases classified elsewhere; F41.8 Other specified anxiety disorders; K21.9 Gastro-esophageal reflux disease without esophagitis; Z85.038 Personal history of other malignant neoplasm of large intestine
CPT/HCPCS: 80053; 81001; 83690; 85025; 96365; 96375; 99283; J2405

== ENCOUNTER → 2021-03-17 11:34 | Outpatient (CLI) | payer OTHER, SELFPAY ==
[2021-03-17 12:20] LABS: Coronavirus 19, PCR Not Detected (NotDetected); Influenza A, PCR Not Detected (NotDetected); Influenza B, PCR Not Detected (NotDetected)
== END ==
PROVIDERS: PCP Nurse Practitioner; Visit Provider Family Medicine
DX: Z20.822 Contact with and (suspected) exposure to COVID-19 (principal)
CPT/HCPCS: C9803; U0003; U0005

== ENCOUNTER → 2021-03-27 16:07 | Outpatient (CLI) | payer OTHER, SELFPAY ==
--- NOTE | 2021-03-27 16:12 | XR_ITS ---
PROCEDURE: XR KUB CLINICAL INDICATION: ALTERNATING CONSTIPATION AND DIARRHEA COMPARISON: No exams were available for comparison FINDINGS: There is a mild amount of retained colonic feces. Surgical clips are present in the right upper quadrant. Mild degenerative changes SI joints. IMPRESSION: Mild amount of retained colonic feces Dictated by: Nic Newberry MD 03/27/2021 18:19 Nic Newberry MD in [place] 03/27/2021 18:19
== END ==
PROVIDERS: PCP Nurse Practitioner; Visit Provider Nurse Practitioner
DX: R19.8 Other specified symptoms and signs involving the digestive system and abdomen (principal)
CPT/HCPCS: 74018

== ENCOUNTER → 2021-04-09 17:17 | Outpatient (CLI) | payer OTHER, SELFPAY ==
--- NOTE | 2021-04-09 17:35 | ECG_ITS ---
APPROVED REPORT Exam: Resting ECG HR:66 bpm ECG Measurements Heart Rate 66 AXES KS 176 P 65 QRSd 102 QRS 84 QT 398 T 66 QTc 417 Conclusion Normal sinus rhythm Incomplete right bundle branch block Borderline ECG Electronically signed by : Ritchie Marte MD 04/09/2021 20:59:51
== END ==
PROVIDERS: PCP Nurse Practitioner; Visit Provider Nurse Practitioner
DX: R00.1 Bradycardia, unspecified (principal)
CPT/HCPCS: 93005; 93225; 93226

== ENCOUNTER → 2021-05-14 10:00 | Outpatient (CLI) | payer OTHER, SELFPAY ==
[2021-05-14 10:54] LABS: Adenovirus,PCR Not Detected (NotDetected); Bordetella Pertussis Not Detected (NotDetected); Chlamydophila Pneumoniae, PCR Not Detected (NotDetected); Coronavirus 229E Not Detected (NotDetected); Coronavirus NL63 Not Detected (NotDetected); Coronovirus HKU1,PCR Not Detected (NotDetected); Human Metapneumovirus Not Detected (NotDetected); Influenza A, PCR Not Detected (NotDetected); Influenza AH1, 2009 Not Detected (NotDetected); Influenza AH1, PCR Not Detected (NotDetected); Influenza AH3,PCR Not Detected (NotDetected); Influenza B, PCR Not Detected (NotDetected); Mycoplasma Pneumoniae, PCR Not Detected (NotDetected); Parainfluenza 1, PCR Not Detected (NotDetected); Parainfluenza 2, PCR Not Detected (NotDetected); Parainfluenza 3, PCR Not Detected (NotDetected); Parainfluenza 4, PCR Not Detected (NotDetected); Respiratory Syncytial Virus Not Detected (NotDetected); Rhinovirus/Enterovirus Not Detected (NotDetected)
[2021-05-14 11:33] LABS: Basophils # 0.1 K/mm3 (0-0.2); Basophils % 1.2 % (0.1-2.0); Eosinophils # 0.3 K/mm3 (0.0-0.4); Eosinophils % 4.3 % (0.1-12.0); Hematocrit 40.1 % (37.0-47.0); Hemoglobin 13.2 g/dL (12.2-16.2); Lymphocytes # 2.1 K/mm3 (0.7-4.5); Mean Corpuscular Hemoglobin 30.2 pg (27.0-31.2); Mean Corpuscular Volume 91.5 fl (81-99); Mean Platelet Volume 7.6 fl (7.4-10.4); Monocytes # 0.4 K/mm3 (0.1-1.0); Neutrophils # 4.5 K/mm3 (1.8-7.8); Neutrophils % 61.5 % (37.0-80.0); Platelet Count 343 K/mm3 (142-424); Red Blood Count 4.38 M/mm3 (4.20-5.40); Red Cell Distribution Width 13.2 % (11.5-17.5); White Blood Count 7.4 K/mm3 (4.8-10.8)
[2021-05-14 14:58] LABS: Strep Scrn Group A (Rapid) Positive (Negative)
[2021-05-14 16:08] LABS: Coronavirus OC43 Detected (NotDetected)
== END ==
PROVIDERS: PCP Nurse Practitioner; Visit Provider Nurse Practitioner
DX: U07.1 COVID-19 (principal); J06.9 Acute upper respiratory infection, unspecified; J02.0 Streptococcal pharyngitis
CPT/HCPCS: 36415; 85025; 87430; 87486; 87581; 87632; 87798; C9803; U0003; U0005

== ENCOUNTER → 2021-05-29 14:42 | Outpatient (CLI) | payer OTHER, SELFPAY | PROVIDERS: PCP Nurse Practitioner; Visit Provider Nurse Practitioner | DX: R00.1 Bradycardia, unspecified (principal) | CPT/HCPCS: 93270 ==

== ENCOUNTER → 2021-11-26 07:18 | Outpatient (CLI) | payer OTHER, SELFPAY ==
[2021-11-25 18:37] LABS: Basophils # 0.1 K/mm3 (0-0.2); Basophils % 0.9 % (0.1-2.0); Eosinophils # 0.3 K/mm3 (0.0-0.4); Eosinophils % 3.5 % (0.1-12.0); Hematocrit 37.6 % (37.0-47.0); Hemoglobin 12.8 g/dL (12.2-16.2); Lymphocytes # 2.3 K/mm3 (0.7-4.5); Lymphocytes % 27.9 % (10-50); Mean Corpuscular HGB Conc 34.1 g/dL (31.8-35.4); Mean Corpuscular Hemoglobin 30.1 pg (27.0-31.2); Mean Corpuscular Volume 88.3 fl (81-99); Monocytes # 0.4 K/mm3 (0.1-1.0); Monocytes % 4.8 % (1.7-9.3); Neutrophils # 5.2 K/mm3 (1.8-7.8); Neutrophils % 62.9 % (37.0-80.0); Platelet Count 323 K/mm3 (142-424); Red Blood Count 4.26 M/mm3 (4.20-5.40); Red Cell Distribution Width 12.4 % (11.5-17.5); White Blood Count 8.3 K/mm3 (4.8-10.8)
[2021-11-27 08:15] LABS: Cytomegalovirus (CMV) Ab, IgG <0.60 U/mL (0.00-0.59); Cytomegalovirus (CMV) Ab, IgM <30.0 AU/mL (0.0-29.9)
[2021-11-27 12:17] LABS: Antistreptolysin O Ab 348.6 IU/mL (0.0-200.0)
[2021-11-27 14:12] LABS: EBV Ab VCA, IgM <36.0 U/mL (0.0-35.9)
== END ==
PROVIDERS: PCP Nurse Practitioner; Visit Provider Nurse Practitioner
DX: R59.0 Localized enlarged lymph nodes (principal)
CPT/HCPCS: 85025; 86060; 86644; 86645; 86664; 86665